=== PATIENT | female | born 1970 | race Caucasian/White ===

== ENCOUNTER 2017-11-17 10:29 | Day surgery (SDC) | payer BC ==
[~2017-11-17 10:29] MED LIST: ACETAMINOPHEN 1,000 MG/100 ML BTL IV ONE; CEFAZOLIN 2 Gram 2 GM/50 ML BAG IVPB ONE
[2017-11-17] MEDS ORDERED: ENOXAPARIN 40 MG/0.4 ML SYR SQ ONE (10:30)
[2017-11-17] MEDS ORDERED: MIDAZOLAM HCL 2MG/2ML VIAL IV ONE (10:30)
[2017-11-17] MEDS ORDERED: KETOROLAC 30 MG/ML VIAL IVP ONE (10:30)
[2017-11-17] MEDS ORDERED: FENTANYL PF 100MCG/2ML VIAL IV ONE (10:30)
[2017-11-17] MEDS ORDERED: BUPIVACAINE 0.5% W/EPI MPF 30 ML VIAL IVP ONE (10:30)
[2017-11-17] MEDS ORDERED: SEVOFLURANE 250 ML INH ONE (10:30)
[2017-11-17] MEDS ORDERED: LIDOCAINE 2% MDV (20MG/ML) 20ML VIAL IV ONE (10:30)
[2017-11-17] MEDS ORDERED: METHYLPREDNISOLONE 40MG/VIAL IM ONE (10:30)
[2017-11-17] MEDS ORDERED: PROPOFOL 10 MG/ML VIAL IV ONE (10:30)
[2017-11-17] MEDS ORDERED: ONDANSETRON HCL IV 4 MG/2 ML VIAL IVP ONE (10:30)
--- NOTE | 2017-11-18 07:25 | Operative Note ---
DATE: 11/17/2017. PREOPERATIVE DIAGNOSIS: INTERNAL DERANGEMENT OF THE RIGHT KNEE. POSTOPERATIVE DIAGNOSES: 1. DIFFUSE SYNOVITIS. 2. GRADE 3 CHONDROMALACIA OF THE PATELLA. 3. GRADE 3 CHONDROMALACIA OF THE NOTCH. 4. 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 3. COMPLEX SPLIT TEAR INVOLVING THE POSTERIOR HORN OF THE MEDIAL MENISCUS. PROCEDURES: 1. Right knee arthroscopy with partial medial meniscectomy. 2. Right knee arthroscopy with chondroplasty of the patellofemoral compartment and medial compartment. 3. Right knee arthroscopy with a complete synovectomy. STAFF SURGEON: Rayshawn Mora M.D. ANESTHESIA: General. PREPARATION: ChloraPrep. INDIVIDUAL CONSIDERATIONS: None. PROCEDURE: The patient was taken to the operating room and placed supine on the operating table. She had successful induction of a general anesthetic. Her right lower extremity was prepped and draped in the usual fashion. The patient had a superolateral inflow cannula placed. The skin had been infiltrated with 0.5% Marcaine with epinephrine prior. A clear effusion was drained, and the knee was inflated with normal saline. An inferomedial and an inferolateral portal were made in a similar fashion. The arthroscope was introduced through the inferolateral portal up into the pouch. The patient had diffuse synovitis of the pouch and both gutters. This was debrided out with a shaver. Grade 3 change in the inferior half of the patella was smoothed with the shave. There was an ulcer in the notch about the size of a quarter with peeling cartilage peripherally, primarily medially based. In the medial compartment there was grade 3 change and peeling cartilage from about 45 to 90 which was smoothed off with shaver, luckily not down to bone. She basically had an unstable, almost a radial flap tear, involving the posterior horn of the medial meniscus. Most of this was debrided out with basket forceps and a shaver to a stable rim, preserving the medial and anterior horns. In the notch, the cruciates were normal. The lateral compartment structures were normal. The knee was then irrigated out with saline to remove floating debris. The portals were closed with brittany, and 20 mL of 0.25% plain Marcaine along with 4.0 mg of morphine and 40 mg of Depo Medrol were injected into the knee. A sterile bulky compressive dressing was applied. The patient tolerated the procedures well. Needle and sponge counts were correct. Estimated blood loss was minimal. She was taken back to Recovery in good condition. There were no complications. Job Number: [id number] cc: Ernesto Landeros
== END 2017-11-17 14:00 | disposition home or self-care (01) ==
LOC: SUR 10:29
PROVIDERS: ATTEND Orthopaedic Surgery
DX: S83.241A Other tear of medial meniscus, current injury, right knee, initial encounter (principal); M65.861 Other synovitis and tenosynovitis, right lower leg; M22.41 Chondromalacia patellae, right knee; M94.261 Chondromalacia, right knee
CPT/HCPCS: J1030; J1650; J1885; J2405